=== PATIENT | male | born 1950 | race Caucasian/White ===

== ENCOUNTER → 2017-10-12 | Outpatient (CLI) | payer BC ==
[2016-03-22 17:30] VITALS: BMI 30.1
[~2017-10-12] MED LIST: ACYC-1 PO; ASPI-764 PO; ASPI-879 PO; ATR10 PO; CHOL100052 PO; CHOL400C10 PO; CIP500 PO; DICL-195 PO; DIPH-543 PO; EFIN4SOL TD; ESOM20CA31 PO; ESOM40CA42 PO; FAM20 PO; FURO20TA19 PO; GABA-549 PO; LIT150 PO; LITC450 PO; LOM PO; LOR5/325 PO; MELA10TA2 PO; MELO-205 PO; MODA200T6 PO; PER PO; PHENA200 PO; PRAM1TAB22 PO; PRAV20TA65 PO; PREVACID OTC PO; ROSU10TA13 PO; TADA20TA33 PO; [UNRECOGNIZED DRUG - OTHER] IM
[2017-10-12 16:17] LABS: PLATELET COUNT, AUTOMATED 232 K/uL (150-450)
== END ==
LOC: LAB 15:42
PROVIDERS: ATTEND Nurse Practitioner Family
DX: R19.7 Diarrhea, unspecified (principal); K21.9 Gastro-esophageal reflux disease without esophagitis; I50.32 Chronic diastolic (congestive) heart failure; G47.30 Sleep apnea, unspecified
CPT/HCPCS: 36415; 82040; 82150; 82247; 82310; 82374; 82435; 82565; 82947; 83690; 84075; 84132; 84155; 84295; 84450; 84460; 84520; 85025; 85651; 86140

== ENCOUNTER 2017-10-18 01:30 | Day surgery (SDC) | payer BC ==
[2016-03-22 17:30] VITALS: Ht 177.8 cm; Wt 99.3 kg
[~2017-10-18] VITALS: Ht 177.8 cm; Wt 99.3 kg
[2017-10-18] VITALS (10 sets, daily range): BP systolic 120–151; BP diastolic 61–91
[2017-10-18] MEDS ORDERED: GLYCOPYRROLATE 0.2 MG/ML SDV IVP ONE (08:35)
[2017-10-18] MEDS ORDERED: LIDOCAINE MPF 1% 5 ML VIAL ONE (09:24)
[2017-10-18] MEDS ORDERED: PROPOFOL EMUL(*) 10MG/ML 20 ML 60 ML ONE (09:24)
[2017-10-18] MEDS ORDERED: ONDANSETRON 4 MG/2 ML VIAL ONE (09:54)
[2017-10-18] MEDS ORDERED: NORMOSOL R SOLN(*) 1000 ML BAG 1,000 ML IV PRN (11:30)
[2017-10-18] MEDS ORDERED: LIDOCAINE/SOD BICARB 8.4% SYR ID ONE (11:30)
[2017-10-18] MEDS ORDERED: MIDAZOLAM 2 MG/2 ML VIAL IVP PRN (11:30)
[2017-10-18] MEDS ORDERED: PROPOFOL EMUL(*) 10MG/ML 20 ML 40 ML ONE (13:23)
== END 2017-10-18 16:00 | disposition home or self-care (01) ==
LOC: OR 01:30
PROVIDERS: ATTEND Internal Medicine Gastroenterology
DX: K64.8 Other hemorrhoids (principal); K57.30 Diverticulosis of large intestine without perforation or abscess without bleeding; K63.5 Polyp of colon
CPT/HCPCS: 00811; 43239; 43251; 45380; 45385; 88305; 88313; 88344; J2001; J2405; J2704; J3490

== ENCOUNTER → 2018-04-05 | Outpatient (CLI) | payer BC ==
[2016-03-22 17:30] VITALS: BMI 30.1
[~2018-04-05] MED LIST changes: -ROSU10TA13 PO; +ROSU10TA5 PO
== END ==
LOC: LAB 14:41
PROVIDERS: ATTEND Surgery
DX: L82.1 Other seborrheic keratosis (principal)
CPT/HCPCS: 88305

== ENCOUNTER → 2018-07-08 | Outpatient (CLI) | payer BC ==
[2016-03-22 17:30] VITALS: BMI 30.1
--- NOTE | 2018-07-08 14:36 | RADIOLOGY IMAGING REPORT ---
FACILITY: [facility] - [place] PATIENT NAME: Matt Gutierrez : 1950 MR: [id number] V: [id number] EXAM DATE: ORDERING PHYSICIAN: FERDINAND RUBY TECHNOLOGIST: [place] [facility] [place]: Matt Gutierrez : 1950 Visit/Account:[id number] Date of Sevice: 07/08/2018 EXAMINATION: Thyroid ultrasound HISTORY: Evaluate for thyroid nodularity, photopenic defect seen on thyroid nuclear medicine study. COMPARISON: None. FINDINGS: The right thyroid lobe measures 5.4 x 2.8 x 3.1 cm. The left thyroid lobe measures 3.9 x 1.9 x 1.4 c m. The isthmus measures 0.2 cm in thickness. There is a mildly hypoechoic circumscribed nodule in the right mid to upper thyroid lobe measuring 3. 5 x 3 cm. A smaller hypoechoic right lower thyroid nodule measures 5 mm. An equivocal isoechoic left lower thyroid lobe nodule measures 1.4 x 1 cm. This could alternatively represent heterogeneous parenchyma without underlying nodule. IMPRESSION: 1. Nonspecific 3.5 x 3 cm right mid to upper thyroid nodule is hypermetabolic on the comparison thyr oid nuclear medicine study in hindsight review. Fine-needle aspiration of this nodule is recommended given size of the nodule as well as hypermetabol ism on the comparison nuclear medicine study. 2. Equivocal 1.4 cm isoechoic left lower thyroid nodule versus heterogeneous parenchyma. Follow-up ultrasound may be warranted to ensure stability of this finding. 3. Additional 5 mm right lower thyroid nodule statistically represents a benign adenoma. Report Dictated By: Karthikeyan Nieves MD at 07/08/2018 2:24 PM Report E-Signed By: Karthikeyan Nieves MD at 07/08/2018 2:33 PM WSN:[email or web address]
== END ==
LOC: US 01:12
PROVIDERS: ATTEND Family Medicine
DX: E04.2 Nontoxic multinodular goiter (principal)
CPT/HCPCS: 76536

== ENCOUNTER 2018-07-22 13:15 | Outpatient (RCR) | payer BC ==
[2016-03-22 17:30] VITALS: BMI 30.1
[2018-07-22 13:49] LABS: PLATELET COUNT, AUTOMATED 223 K/uL (150-450)
--- NOTE | 2018-07-23 11:03 | EKG ---
FACILITY: [facility] PATIENT NAME: LUBNA STRONG : [id number] MR: [id number] V: [id number] EXAM DATE: ORDERING PHYSICIAN: FERDINAND CASTILLO TECHNOLOGIST: DANIEL Xie Reason : PRE-OP Blood Pressure : / mmHG Vent. Rate : 063 BPM Atrial Rate : 063 BPM P-R Int : 166 ms QRS Dur : 114 ms QT Int : 410 ms P-R-T Axes : 044 032 061 degrees QTc Int : 419 ms Normal sinus rhythm Normal ECG No previous ECGs available Confirmed by FERDINAND WATTERS ([id number]) on 07/24/2018 6:19:41 AM Referred By: DONNIE SAMSON Confirmed By:FERDINAND WATTERS
== END 2018-08-06 ==
LOC: LAB 13:15 → EDSTATUS 07-23 09:54
PROVIDERS: ATTEND Anesthesiology
DX: Z01.812 Encounter for preprocedural laboratory examination (principal); Z01.810 Encounter for preprocedural cardiovascular examination; M79.645 Pain in left finger(s); G56.02 Carpal tunnel syndrome, left upper limb
CPT/HCPCS: 36415; 82040; 82247; 82310; 82374; 82435; 82565; 82947; 84075; 84132; 84155; 84295; 84450; 84460; 84520; 85025; 93005

== ENCOUNTER 2018-07-22 13:20 | Outpatient (RCR) | payer BC ==
[2016-03-22 17:30] VITALS: BMI 30.1
[2018-07-22 13:57] LABS: INR 0.91
--- NOTE | 2018-07-23 15:58 | RADIOLOGY IMAGING REPORT ---
FACILITY: [facility] - [place], [place] PATIENT NAME: Matt Gutierrez : 1950 MR: [id number] V: [id number] EXAM DATE: ORDERING PHYSICIAN: FERDINAND RUBY TECHNOLOGIST: Location: [facility] Patient: Matt Gutierrez : 1950 Visit/Account:[id number] Date of Sevice: 07/23/2018 Exam type: THYROID BIOPSY History: Right-sided thyroid nodule Comparison: July 08, 2018. Findings: Informed consent was obtained. The right-sided the patient's neck was prepped and draped usual steri le fashion. Local anesthesia was accomplished with 1% lidocaine. Under sonographic guidance four 25 -gauge FNA biopsies were obtained through the hypoechoic nodule in the right lobe. The samples were given to the cytotechnologist/cytology supervisor for processing. The procedure was accomplished without apparent complication IMPRESSION: 1. Successful sonographically guided FNA biopsy of the hypoechoic right-sided thyroid nodule Report Dictated By: Amber Zhong MD at 07/23/2018 3:53 PM Report E-Signed By: Amber Zhong MD at 07/23/2018 3:54 PM WSN:[email or web address]
[2018-08-08] MEDS ORDERED: PANT20TA27 PO (09:43)
[2018-08-09] MEDS ORDERED: HYDR-385 PO (18:03)
[2018-08-09] MEDS ORDERED: CLIN300C99 PO (18:04)
== END 2018-07-23 18:00 | disposition home or self-care (01) ==
LOC: US 13:20 → EDSTATUS 07-23 13:20 → US 07-23 18:00
PROVIDERS: ATTEND Family Medicine
DX: E04.1 Nontoxic single thyroid nodule (principal)
CPT/HCPCS: 76942; 85610; 88104; 88172